=== PATIENT | female | born 1955 ===

== ENCOUNTER 2022-06-02 08:28 | Outpatient (REF) | payer OTHER, SELFPAY | END 2022-06-02 08:29 | disposition home or self-care (01) | LOC: HO.LAB 08:28 | PROVIDERS: PCP Internal Medicine | DX: R32 Unspecified urinary incontinence (principal); N81.10 Cystocele, unspecified; R31.29 Other microscopic hematuria | CPT/HCPCS: 51798; 87086; 99202 ==